=== PATIENT | female | born 1930 | race Caucasian/White ===

== ENCOUNTER → 2016-12-02 | Outpatient (CLI) | payer OTHER, BC ==
[~2016-12-02] MED LIST: ASPI81TA28 PO; CALC500C70 PO; CHOL100027 PO; CLC100 PO; CLC100X PO; IMD2X PO; LEVO112T2 PO; MENTOIN TOP; MULT-513 PO; NRV/10 PO; NUTR-7 PO; POLYPOW97 PO; QUET1TAB30 PO; RXC5 PO; TPRSR/25 PO; TPRSR25 PO; TYL325X PO
== END ==
LOC: C.LABCC 08:07
PROVIDERS: ATTEND Internal Medicine
DX: E03.9 Hypothyroidism, unspecified (principal)

== ENCOUNTER → 2017-04-03 | Outpatient (CLI) | payer OTHER, BC ==
[2017-04-03 11:00] LABS: HEMATOCRIT 39.8 % (37-47); MEAN CELL VOLUME 97.1 fL (80-100); MEAN CORPUSCULAR HEMOGLOBIN 32.4 pg (25-34); MEAN CORPUSCULAR HGB CONC 33.4 g/dl (32-36); PLATELET COUNT 291 K/uL (130-400); WHITE BLOOD COUNT 6.43 K/uL (4.8-10.8)
[2017-04-03 11:24] LABS: ALKALINE PHOSPHATASE 67 U/L (45-117); ALT/SGPT 16 U/L (12-78); BLOOD UREA NITROGEN 27 mg/dl (7-18); BUN/CREATININE RATIO 29.1 (10-20); CALCIUM 9.5 mg/dl (8.5-10.1); CARBON DIOXIDE 28 mmol/L (21-32); CHLORIDE 104 mmol/L (98-107); CREATININE 0.94 mg/dl (0.60-1.20); GLUCOSE 91 mg/dl (70-99); POTASSIUM 4.4 mmol/L (3.5-5.1); SODIUM 140 mmol/L (136-145); THYROID STIMULATING HORMONE 0.415 uIu/ml (0.300-4.500)
[2017-04-03 11:34] LABS: BASO % 0.5 %; BASO ABS # 0.03 K/uL (0-0.2); COMPLETE YES; ECHINOCYTES 1+; EOS % 2.2 %; IG% 0.2 %; LYMPH % 53.3 %; LYMPH ABS # 3.43 K/uL (1.2-3.4); MONO % 9.2 %; NEUT % 34.6 %; VACUOLIZATION 1+
[2017-04-03 11:38] LABS: AST/SGOT 19 U/L (15-37)
--- NOTE | 2017-04-09 11:24 | CODING QUERY MEDICAL NECESSITY ---
CQSUPPORTING DIAGNOSIS NEEDED A supporting diagnosis is required for the test/procedure performed on this patient in order for us to be reimbursed by the patient's insurance. Please provide a supporting diagnosis for the following test/procedure listed below next to the test name along with your signature. *If there is no additional diagnosis for this patient that would support the following test/procedure please document that below next to the test/procedure. Test(s)/Procedure(s) that require a supporting diagnosis: DOS 04/03/17 VITAMIN B12 Provider Signature: Date: Thank you Rubia Higgins [employer] Once completed, please kindly fax back to [phone] For questions please call [phone]
== END ==
LOC: C.LABCC 09:58
PROVIDERS: ATTEND Internal Medicine
DX: E03.9 Hypothyroidism, unspecified (principal); D64.9 Anemia, unspecified; E55.9 Vitamin D deficiency, unspecified; R25.1 Tremor, unspecified